=== PATIENT | female | born 1970 | race Caucasian/White ===

== ENCOUNTER → 2019-02-02 12:21 | Outpatient (CLI) | payer BC, SELFPAY ==
--- NOTE | 2019-02-02 12:25 | DI.RAD.S_ITS ---
PROCEDURE: XR ABDOMEN 1V INDICATIONS: epigastric pain, V/D TECHNIQUE: One view of the abdomen acquired. COMPARISON: None. FINDINGS: Surgical changes and devices: None. Bowel: Bowel gas pattern is normal. Soft tissues: No suspicious abdominal calcifications. Visualized solid organ contours appear normal in size. Bones: No suspicious bony lesions. IMPRESSION: Source of epigastric pain is not identified. Dictated by: Ted Del Real M.D. on 02/02/2019 at 13:32 Approved by: Ted Del Real M.D. on 02/02/2019 at 13:33
== END ==
PROVIDERS: Visit Provider Physician Assistant
DX: R10.13 Epigastric pain (principal); R11.10 Vomiting, unspecified; R19.7 Diarrhea, unspecified
CPT/HCPCS: 74018

== ENCOUNTER → 2019-05-22 17:09 | Outpatient (CLI) | payer BC, SELFPAY ==
[2019-05-22 19:15] LABS: HIV 1 & 2 Ab/Ag 4th Gen Combo NEGATIVE (NEGATIVE)
[2019-05-22 19:59] LABS: Hep C Virus Ab w/Reflex Quant NEGATIVE s/c (NEGATIVE)
[2019-05-25 13:38] LABS: HSV 1 IgM Screen Negative (Negative); HSV 2 IgM Screen Negative (Negative)
[2019-05-25 20:58] LABS: RPR Screen Nonreactive (Nonreactive)
== END ==
DX: A64 Unspecified sexually transmitted disease (principal)
CPT/HCPCS: 36415; 86592; 86695; 86696; 86803; 87389

== ENCOUNTER → 2019-06-16 09:11 | Outpatient (CLI) | payer BC, SELFPAY ==
[2019-06-16 09:51] LABS: Add Manual Diff / Slide Review NO; Basophils Absolute Auto 100 /uL (0-100); Basophils Percent Auto 1.5 % (0-2); Eosinophils Absolute Auto 800 /uL (0-450); Eosinophils Percent Auto 14.2 % (2-4); Hemoglobin 12.8 g/dL (12.0-16.0); Lymphocytes Absolute Auto 1800 /uL (1100-4500); Lymphocytes Percent Auto 31.2 % (25-40); Mean Corpuscular HGB Conc 33.6 % (30-36); Mean Corpuscular Hemoglobin 29.9 PG (26-34); Mean Corpuscular Volume 89.1 fL (80-100); Monocytes Absolute Auto 500 /uL (0-900); Neutrophils Absolute Auto 2500 /uL (1500-7000); Neutrophils Percent Auto 44.1 % (50-75); Platelet Count 326 X10^3/uL (150-400); Red Blood Cell Count 4.27 X10^6/uL (4.0-5.2); White Blood Cell Count 5.7 X10^3/uL (4.5-11.0)
[2019-06-16 09:56] LABS: Alanine Aminotransferase 15 IU/L (<35); Albumin 4.1 g/dL (3.5-5.0); Albumin Globulin Ratio 1.3 (1.0-2.8); Alkaline Phosphatase 48 U/L (38-126); Aspartate Aminotransferase 20 IU/L (14-36); BUN Creatinine Ratio 12.9 (6-22); Bilirubin Total 0.7 mg/dL (0.2-1.3); Blood Urea Nitrogen 9 mg/dL (7-17); Calcium 9.5 mg/dL (8.4-10.2); Carbon Dioxide 26 mmol/L (22-32); Chloride 102 mmol/L (98-107); Cholesterol 234 mg/dL (140-199); Estimated Glomerular Filt Rate > 60.0 mL/min (>60); Globulin 3.1 g/dL (1.7-4.1); Glucose 92 mg/dL (70-100); HDL Cholesterol 49 mg/dL (40-60); HEMOLYSIS < 15 (0-50); LDL Cholesterol Calculated 171 mg/dL (<100); Potassium 4.2 mmol/L (3.4-5.1); Sodium 138 mmol/L (137-145); Total Protein 7.2 g/dL (6.3-8.2); Triglycerides 69 mg/dL (35-150)
[2019-06-16 10:13] LABS: Vitamin D 25 Hydroxy (D3) 35.8 ng/mL (30.0-100.0)
[2019-06-16 10:17] LABS: Free T3, Triiodothyronine Free 3.01 pg/mL (2.77-5.27)
[2019-06-16 10:30] LABS: Thyroid Stimulating Hormone 1.43 uIU/mL (0.47-4.68)
[2019-06-16 10:46] LABS: Vitamin B12 458 pg/mL (239-931)
== END ==
PROVIDERS: PCP Family Medicine; Referring Provider Family Medicine; Visit Provider Family Medicine
DX: Z13.220 Encounter for screening for lipoid disorders (principal); Z13.29 Encounter for screening for other suspected endocrine disorder; E55.9 Vitamin D deficiency, unspecified; R53.83 Other fatigue
CPT/HCPCS: 36415; 80053; 80061; 82306; 82607; 84439; 84443; 84481; 85025

== ENCOUNTER → 2019-09-27 15:01 | Outpatient (CLI) | payer BC, SELFPAY ==
--- NOTE | 2019-09-27 | DI.US.S_ITS ---
PROCEDURE: US ABDOMEN COMPLETE INDICATIONS: EPIGASTRIC PAIN TECHNIQUE: Real-time scanning was performed of the abdominal and retroperitoneal organs, with image documentation. COMPARISON: [facility], CR, XR ABDOMEN 1V, 02/02/2019, 12:24. FINDINGS: Liver: Liver is normal in size and homogeneous in echotexture. Gallbladder: No findings of gallstones or sludge are seen. The gallbladder wall is not thickened, measuring 3 mm or less. No specific pericholecystic fluid is seen. The sonographic Calvo sign is negative. Biliary ducts: Intrahepatic bile ducts are non-dilated. Extrahepatic bile duct caliber measures 4 mm. Normal is 6-7 mm or less in diameter, or 10 mm or less post-cholecystectomy. Pancreas: Visualized portions of the pancreas are sonographically normal. Spleen: Spleen is normal in size and homogeneous in echotexture. Kidneys: Kidneys are normal in size and echotexture. Right kidney measures 9.4 cm long; left kidney measures 12.1 cm long. No hydronephrosis or nephrolithiasis. No solid masses. Aorta: Visualized aorta is normal in caliber at less than 3 cm. Iliacs: Proximal common iliac arteries are normal in caliber at less than 2.5 cm. IVC: Intrahepatic inferior vena cava is patent. Miscellaneous: No free abdominal fluid. IMPRESSION: The gallbladder demonstrates a normal sonographic appearance. No biliary dilatation is seen. Dictated by: Tj Valdez M.D. on 09/27/2019 at 14:59 Approved by: Tj Valdez M.D. on 09/27/2019 at 15:00
== END ==
PROVIDERS: PCP Family Medicine; Referring Provider Internal Medicine; Visit Provider Internal Medicine
DX: R10.13 Epigastric pain (principal)
CPT/HCPCS: 76700

== ENCOUNTER → 2020-02-28 09:39 | Outpatient (CLI) | payer BC, SELFPAY ==
[2020-02-28 11:26] LABS: Vitamin D 25 Hydroxy (D3) 30.4 ng/mL (30.0-100.0)
[2020-02-28 11:28] LABS: Free T3, Triiodothyronine Free 3.26 pg/mL (2.77-5.27); Free T4, Direct Thyroxine 0.99 ng/dL (0.78-2.19)
[2020-02-28 11:41] LABS: Thyroid Stimulating Hormone 1.46 uIU/mL (0.47-4.68)
[2020-03-01 20:35] LABS: HSV I/II IgM 0.96 Ratio (0.00-0.90)
== END ==
PROVIDERS: PCP Family Medicine; Referring Provider Family Medicine; Visit Provider Family Medicine
DX: E78.5 Hyperlipidemia, unspecified (principal); R53.83 Other fatigue; Z20.2 Contact with and (suspected) exposure to infections with a predominantly sexual mode of transmission; E55.9 Vitamin D deficiency, unspecified
CPT/HCPCS: 36415; 82306; 84439; 84443; 84481; 86694; 86695

== ENCOUNTER → 2020-03-14 17:15 | Outpatient (CLI) | payer BC, SELFPAY | PROVIDERS: PCP Family Medicine; Referring Provider Family Medicine; Visit Provider Family Medicine | DX: Z20.89 Contact with and (suspected) exposure to other communicable diseases (principal) | CPT/HCPCS: 36415; 86696 ==

== ENCOUNTER 2020-03-17 11:09 | Outpatient (RCR) | payer BC, SELFPAY ==
--- NOTE | 2020-03-18 10:24 | ST.OPIE ---
Visit Care Team Role Provider Type Everardo Ingram DO Primary Care Provider Physician Specialty: Family Practice Address: [address] [place] [address], [id number] Email: Omi Marin MD Attending Provider Physician Referring Provider Specialty: Ear, Nose, Throat Address: [address] [place] [address], [id number] Email: [email or web address] Speech-Language Pathology Initial Evaluation REGISTERED DENTAL HYGIENIST Clinical Swallow Evaluation Start: 03/18/20 09:29 Freq: Status: Active Protocol: Document 03/17/20 11:30 LNK (Rec: 03/18/20 10:24 LNK [id number]) Clinical Swallow Evaluation Session Time Visit Start Time 11:30 Visit Stop Time 12:30 Total Visit Minutes 60 Visit Information Plan of Care Dates 03/17/20-06/17/[address] Marin, ENT Reason for Referral dysphagia Setting Assessment Location Outpatient Care Visit Type Note Type Initial evaluation Next Note Type Next Note Type Treatment Note Patient Information Identification Type Name,Picture History April is a 49 year old female who was referred for an evaluation of her swallowing. According to April, she has experienced some choking on liquids (e.g.,hot tea) and has difficulty with swallowing pills. She reports a sensation of globus when she swallows as well. Swallowing foods after the pills typically allows the pills to pass. April reported a medical history of sinusitis, PND, a possible hiatal hernia (per her chiropractor) and thyroid problems (Sjogren's disease). April noted that she has frequent sinusitis with non- stop PND. She clears her throat often as well. Her voice can become hoarse at times, especially in the morning. Subjective Observations April arrived on time. During her appointment she was noted to frequently clear her throat. Reported by Patient Other Symptoms Choking,Difficulty swallowing pills Current Diet Regular,Thin liquids Baseline Feeding Method Independent in self-feeding Objective Assessment Mental Status Alert,Responsive,Cooperative Oral Integrity WFL Dentition Within normal limits Lip Function Within normal limits Observation of Lips at Rest Symmetrical Pucker Within normal limits Lip Retraction Within normal limits Alternating Pucker/Lip Retraction Within normal limits Tongue Function Within normal limits Observations of Tongue at Rest Within normal limits Tongue Protrusion Within normal limits Tongue Retraction Within normal limits Tongue Lateralization Within normal limits Observations of Jaw at Rest Within normal limits Hard/Soft Palate Function Within normal limits Nasality Within normal limits Respiratory Sufficiency Within normal limits Food and Liquid Trials Position During Assessment Upright (90 degrees) Liquids Trialed Thin Solids Trialed Regular Administration Type Cup single sip,Self-feeding Oral Impairment Within normal limits Pharyngeal Phase Comments Hyolaryngeal elevation was WNL . Swallow was prompt. No cough /choke observed. No wet voicing following swallows. April did , however, have difficulty swallowing a piece of candy shaped like a pill. She reported that she felt it stuck in her throat (pointing to thyroid cartilage). Several sips of water, some pudding and cracker, did not ease the sensation. It is possible that the pill was lodged within the valeculla. Fatigue/Endurance Endurance WNL Strategies Attempted Effortful swallow,Supraglottic swallow Findings Swallowing Function Within functional limits Swallowing Function Comments April presented with difficulty with swallowing pills. Severity of Swallow Impairment Within functional limits Comment April reported that her chiropractor told her she had a hiatal hernia. It is possible that her sensation of globus could be the result of a referred sensation of globus. Alternatively, April's symptoms may indeed be related to sinusitis, including PND, throat clearing, globus sensation, vocal hoarseness, tissue swelling in the oropharyngeal cavity in response to infection which could impact the inversion of the epiglottis. Given the difficulty April presented while trying to swallow the pill, a swallow therapy program was recommended. Tongue based exercises targeting hyolaryngeal elevation and epiglottal inversion were described and demonstrated to April. Instructions to do these exercises 3-4x/day with a return visit in 4 weeks was also discussed. April was also encouraged to further discuss her sinusitis symptoms with Dr. Marin and her primary physician. Impact on Safety and Functioning No limitations Recommendations Instrumental Assessment No Swallowing Treatment Yes Recommended Solids Regular Recommended Liquids Thin Other Recommendations Pills in a carrier Medication Recommendations Whole in Carrier Referrals Recommended Referrals Gastroenterology, Otolaryngology/ENT Education Patient/Caregiver Education Patient expressed understanding of evaluation, Patient expressed agreement with goals & treatment plans
--- NOTE | 2020-03-18 10:26 | ST.OPPOC ---
Physical, Occupational & Speech Therapy At [facility] Visit Care Team Role Provider Type Everardo Ingram DO Primary Care Provider Physician Address: [address] [place] [address], [id number] Omi Marin MD Attending Provider Physician Referring Provider Address: [address] [place] [address], [address] Speech Pathology Plan of Care Plan of Care Dates 03/17/20-06/17/19 Electronically Signed by: SHARON Morgan 03/18/20 1026 Please Sign and Return: I have reviewed this Plan of Care and certify that the skilled therapy services above are required to meet the patient?s needs. Physician Signature Date Printed Name and Credentials Clinical Instructor Signature Printed Name and Credentials
--- NOTE | 2020-03-31 08:57 | ST.OPTN ---
Visit Care Team Role Provider Type Everardo Ingram DO Primary Care Provider Physician Address: [address] [place] [address], [address] Omi Marin MD Attending Provider Physician Referring Provider Address: [address] [place] [address], [id number] MUSIC PUBLICIST Treatment Note MUSIC PUBLICIST Treatment Note Start: 03/18/20 09:29 Freq: Status: Active Protocol: Document 03/31/20 08:55 LNK (Rec: 03/31/20 08:57 LNK [id number]) Speech Pathology Treatment Note Visit Type Note Type Administrative Note Subjective Observations/Patient Presentation Recived e-mail from pt today: From: April Skelton [mailto: [email or web address]] Sent: Monday, March 30, 2020 9:21 PM To: Alyson Angel Subject: [EXTERNAL] Pills STOP. THINK. READ. This message originated outside of [facility]. Thank you for your help and for your availability by email . I do have a question. First, I'll confess I haven't been doing the exercises - got a bit overwhelmed with health stuff and decided to prioritize the thyroid related stuff first. It turns out, however, that the two are related. The treatment for David's involved swallowing a pill on an empty stomach - no food 2 hours before or an hour after, twice a day. Started this morning. I'm not 100% sure of what Im feeling, but I think it got stuck and stayed in my throat until it waited out the hour and I ate. Tonight I used my training associate to make crushed ice and tried that as a chaser. It does seem a bit better, but my throat is still irritated. I've still received no treatment at all for what I think is a sinus infection. They did do a CT last week. I will stay on them about that. And I'll start donig the exercises you gave me. In the meantime, I'm wondering if you have suggestions about things that might help me get the pills down. Position? Engaging particular muscles in a particular way? Heat or cold on my throat? I'm game to try anything. Playing with hormones is dicey enough when I'm actually getting the meds as prescribed! Not entirely sure what happens to a capsule of T3 as it sits in a moist throat for an hour or more. Thanks for any help you can offer. In Community, April Skelton [employer] [phone] [email or web address] Response to pt: Good morning ? Well, my first thought is that if the pill sat there in your throat, melting could cause irritation, depending on the medication and/or what the coating is. Crushing, or blending the medication in something would be my next suggestion. If your throat is irritated, the ice should help. It sounds like it is difficult if you cannot eat anything. You might try pushing your tongue up on the roof of your mouth before you swallow and then swallow hard. The position will elevate your larynx and may assist the ice mixture to move through the pharynx/throat easier. I hope the CT shows something that can answer your questions . Alyson
== END 2020-06-04 08:46 ==
LOC: SP 11:09
PROVIDERS: PCP Family Medicine; Referring Provider Otolaryngology; Visit Provider Otolaryngology
DX: R13.12 Dysphagia, oropharyngeal phase (principal)
CPT/HCPCS: 92610

== ENCOUNTER → 2020-03-19 07:30 | Outpatient (CLI) | payer BC, SELFPAY ==
[2020-03-20 06:09] LABS: Thyroid Peroxidase Antibodies <9 IU/mL (0-34)
[2020-03-21 03:36] LABS: Thyroxine Binding Globulin 20 ug/mL (13-39)
[2020-04-02 01:43] LABS: Triiodothyronine T3 Reverse 15.1 ng/dL (9.2-24.1)
== END ==
PROVIDERS: PCP Family Medicine; Referring Provider Family Medicine; Visit Provider Family Medicine
DX: E83.01 Wilson's disease (principal)
CPT/HCPCS: 36415; 84442; 84482; 86376

== ENCOUNTER → 2020-03-25 10:08 | Outpatient (CLI) | payer BC, SELFPAY ==
--- NOTE | 2020-03-25 10:12 | DI.CT.S_ITS ---
PROCEDURE: CT SINUS SCREEN WO CON INDICATIONS: Chronic pansinusitis TECHNIQUE: Noncontrast 3.0 mm axial images acquired from the frontal sinuses to the mid-sella, with coronal and sagittal reformats. For radiation dose reduction, the following was used: automated exposure control, adjustment of mA and/or kV according to patient size. COMPARISON: None. FINDINGS: Image quality: There is artifact associated with the metallic hardware. Artifact from the metallic hardware is reduced by metal reconstruction algorithm. Maxillary Sinuses: No bony remodeling or destruction. Moderate mucosal thickening is seen within the inferior right maxillary sinus. There is mild mucosal thickening within the inferior left maxillary sinus. Ethmoid Air Cells: No bony remodeling or destruction. Sinuses are clear. Sphenoid Sinuses: No bony remodeling or destruction. Sinuses are clear. Frontal Sinuses: No bony remodeling or destruction. Tpiz-oz-cttgslgz mucosal thickening is seen within the inferior left frontal sinus. The frontal sinuses are poorly developed. Ostiomeatal Complexes: Ostiomeatal complexes are patent, yet they are constitutionally narrowed. No thamina Jose cells. Miscellaneous: Visualized intra-orbital contents are normal. There is a partial left saira bullosa. Mild to moderate rightward nasal septal deviation can be seen. IMPRESSION: Paranasal sinus disease is seen, which is most prominent within the right maxillary sinus. Narrowed ostiomeatal complexes. Mild to moderate rightward nasal septal deviation. Dictated by: Tj Valdez M.D. on 03/25/2020 at 9:49 Approved by: Tj Valdez M.D. on 03/25/2020 at 9:51
== END ==
PROVIDERS: PCP Family Medicine; Referring Provider Otolaryngology; Visit Provider Otolaryngology
DX: J32.4 Chronic pansinusitis (principal); J34.2 Deviated nasal septum
CPT/HCPCS: 70486

== ENCOUNTER → 2020-07-23 11:56 | Outpatient (CLI) | payer BC, SELFPAY ==
[2020-07-23 13:07] LABS: Hepatitis B Surface Antigen NEGATIVE s/c (NEGATIVE)
[2020-07-23 13:22] LABS: HIV 1 & 2 Ab/Ag 4th Gen Combo NEGATIVE (NEGATIVE); Hep C Virus Ab w/Reflex Quant NEGATIVE s/c (NEGATIVE)
[2020-07-23 13:48] LABS: Urine N gonorrhoeae NOT DETECTED
[2020-07-23 13:49] LABS: Urine Chlamydia NOT DETECTED
[2020-07-24 06:44] LABS: HSV 2 IGG AB < 0.91 index (0.00-0.90)
[2020-07-24 07:09] LABS: RPR Screen Non Reactive (Non Reactive)
== END ==
PROVIDERS: PCP Family Medicine; Referring Provider Nurse Practitioner Family; Visit Provider Nurse Practitioner Family
DX: Z20.2 Contact with and (suspected) exposure to infections with a predominantly sexual mode of transmission (principal)
CPT/HCPCS: 36415; 86592; 86695; 86696; 86803; 87340; 87389; 87491; 87591

== ENCOUNTER → 2021-01-12 12:39 | Outpatient (CLI) | payer BC, SELFPAY ==
--- NOTE | 2021-01-12 12:40 | DI.RAD.S_ITS ---
PROCEDURE: XR RIBS LT MIN 3V W CXR1V INDICATIONS: left rib pain TECHNIQUE: 2 views of the left ribs were acquired, along with a single view chest. COMPARISON: None. FINDINGS: Surgical changes and devices: None. Bones and chest wall: No fractures or dislocations. No suspicious bony lesions. Overlying soft tissues appear unremarkable. Lungs and pleura: No pleural effusions or pneumothorax. Lungs appear clear. Mediastinum: Mediastinal contours appear normal. Heart size is normal. IMPRESSION: No obvious displaced left rib fracture. No acute cardiopulmonary pathology. Dictated by: Kenji Saez M.D. on 01/12/2021 at 15:06 Approved by: Kenji Saez M.D. on 01/12/2021 at 15:20
== END ==
PROVIDERS: PCP Family Medicine; Referring Provider Family Medicine; Visit Provider Family Medicine
DX: R07.81 Pleurodynia (principal)
CPT/HCPCS: 71101

== ENCOUNTER → 2021-05-22 12:36 | Outpatient (CLI) | payer BC, SELFPAY ==
--- NOTE | 2021-05-22 12:39 | DI.MRI.S_ITS ---
PROCEDURE: MR LUMBAR SPINE WO CON INDICATIONS: pain TECHNIQUE: Noncontrast sagittal T1 spin echo and T2 fast echo, sagittal STIR, axial T1 and T2 fast spin echo through the lumbar spine. In cases with scoliosis, additional coronal T2 fast spin echo may be performed. COMPARISON: None. FINDINGS: Image quality: Excellent. Alignment and Curvature: There is normal bony alignment. Bones: Multiple small Schmorl's nodes. Marrow is of normal overall signal. No acute vertebral body compression fractures. Spinal Cord: Conus medullaris terminates at the L1 disc level. Visualized cord demonstrates normal signal and size. Paraspinous Soft Tissues: No paravertebral masses. T12-L1: Normal appearance. L1-L2: Normal appearance. L2-L3: Slight loss of disc signal. No central stenosis. No neural foraminal narrowing. No neural compression L3-L4: Slight loss of disc signal. No central stenosis. No neural foraminal narrowing. No neural compression. L4-L5: Slight loss of disc signal. No central stenosis. No neural foraminal narrowing. No neural compression. L5-S1: Slight loss of disc signal. Mild, diffuse disc bulge. No central stenosis. No neural foraminal narrowing. No neural compression. IMPRESSION: 1. No central stenosis. 2. No neural foraminal narrowing. 3. No neural compression. 4. Multilevel degenerative disc disease. Dictated by: Valeria Hughes MD, PhD on 05/22/2021 at 16:51 Approved by: Valeria Hughes MD, PhD on 05/22/2021 at 16:55
== END ==
PROVIDERS: PCP Family Medicine; Referring Provider Family Medicine; Visit Provider Family Medicine
DX: M51.17 Intervertebral disc disorders with radiculopathy, lumbosacral region (principal)
CPT/HCPCS: 72148

== ENCOUNTER → 2021-11-09 07:06 | Outpatient (CLI) | payer BC, SELFPAY ==
[2021-11-09 08:15] LABS: Hematocrit 36.4 % (36-46); Hemoglobin 12.3 g/dL (12.0-16.0); Mean Corpuscular HGB Conc 33.9 % (30-36); Mean Corpuscular Hemoglobin 30.1 PG (26-34); Mean Corpuscular Volume 88.8 fL (80-100); Platelet Count 315 X10^3/uL (150-400); Red Cell Distribution Width 13.7 % (11.6-14.8); White Blood Cell Count 4.9 X10^3/uL (4.5-11.0)
[2021-11-09 08:19] LABS: Add Manual Diff / Slide Review YES
[2021-11-09 08:41] LABS: Alanine Aminotransferase 29 IU/L (<35); Albumin 3.8 g/dL (3.5-5.0); Albumin Globulin Ratio 1.2 (1.0-2.8); Alkaline Phosphatase 57 U/L (38-126); Aspartate Aminotransferase 26 IU/L (14-36); BUN Creatinine Ratio 18.2 (6-22); Bilirubin Total 0.4 mg/dL (0.2-1.3); Blood Urea Nitrogen 14 mg/dL (7-17); Calcium 8.9 mg/dL (8.4-10.2); Carbon Dioxide 28 mmol/L (22-32); Chloride 105 mmol/L (98-107); Estimated Glomerular Filt Rate > 60 mL/min (>60); Globulin 3.2 g/dL (1.7-4.1); Glucose 95 mg/dL (70-100); HEMOLYSIS < 15 (0-50); Potassium 4.6 mmol/L (3.4-5.1); Sodium 137 mmol/L (137-145)
[2021-11-09 08:49] LABS: Neutrophils Absolute Manual 1813 /uL (3000-5900); RBC Morphology Norm; Total Cells Counted 100
[2021-11-09 08:50] LABS: Erythrocyte Sedimentation Rate 20 MM/HR (0-20)
[2021-11-09 08:53] LABS: Free T3, Triiodothyronine Free 3.29 pg/mL (2.77-5.27); Free T4, Direct Thyroxine 0.96 ng/dL (0.78-2.19)
[2021-11-09 09:07] LABS: Thyroid Stimulating Hormone 1.97 uIU/mL (0.47-4.68)
[2021-11-09 09:12] LABS: Ferritin 40 ng/mL (6-137)
== END ==
PROVIDERS: PCP Family Medicine; Referring Provider Naturopath; Visit Provider Naturopath
DX: F41.9 Anxiety disorder, unspecified (principal); I49.8 Other specified cardiac arrhythmias
CPT/HCPCS: 36415; 80053; 82728; 84439; 84443; 84481; 85007; 85025; 85651; 86850

== ENCOUNTER → 2021-12-09 09:13 | Outpatient (CLI) | payer BC, SELFPAY ==
[2021-12-09 09:52] LABS: Add Manual Diff / Slide Review NO; Basophils Absolute Auto 100 /uL (0-100); Basophils Percent Auto 0.8 % (0-2); Eosinophils Absolute Auto 500 /uL (0-450); Eosinophils Percent Auto 7.3 % (2-4); Hematocrit 37.1 % (36-46); Hemoglobin 12.5 g/dL (12.0-16.0); Lymphocytes Absolute Auto 1700 /uL (1100-4500); Lymphocytes Percent Auto 24.1 % (25-40); Mean Corpuscular HGB Conc 33.6 % (30-36); Mean Corpuscular Hemoglobin 29.8 PG (26-34); Mean Corpuscular Volume 88.7 fL (80-100); Monocytes Absolute Auto 600 /uL (0-900); Monocytes Percent Auto 8.6 % (3-14); Neutrophils Absolute Auto 4200 /uL (1500-7000); Neutrophils Percent Auto 59.2 % (50-75); Platelet Count 304 X10^3/uL (150-400); Red Blood Cell Count 4.18 X10^6/uL (4.0-5.2); Red Cell Distribution Width 13.3 % (11.6-14.8); White Blood Cell Count 7.1 X10^3/uL (4.5-11.0)
[2021-12-09 10:08] LABS: C-Reactive Protein Quant < 0.5 mg/dL (<1.0)
[2021-12-09 10:13] LABS: Erythrocyte Sedimentation Rate 28 MM/HR (0-20)
== END ==
PROVIDERS: PCP Family Medicine; Referring Provider Naturopath; Visit Provider Naturopath
DX: R79.9 Abnormal finding of blood chemistry, unspecified (principal); N95.9 Unspecified menopausal and perimenopausal disorder
CPT/HCPCS: 36415; 83001; 85025; 85651; 86140

== ENCOUNTER → 2022-02-08 11:34 | Outpatient (CLI) | payer BC, SELFPAY | PROVIDERS: PCP Family Medicine; Referring Provider Naturopath; Visit Provider Naturopath | DX: R53.83 Other fatigue (principal); Z72.9 Problem related to lifestyle, unspecified | CPT/HCPCS: 87177 ==

== ENCOUNTER → 2022-02-26 12:23 | Outpatient (CLI) | payer BC, SELFPAY ==
[2022-02-26 13:53] LABS: Add Manual Diff / Slide Review NO; Basophils Absolute Auto 100 /uL (0-100); Basophils Percent Auto 0.9 % (0-2); Eosinophils Absolute Auto 600 /uL (0-450); Eosinophils Percent Auto 5.9 % (2-4); Hematocrit 38.6 % (36-46); Lymphocytes Absolute Auto 2300 /uL (1100-4500); Lymphocytes Percent Auto 23.7 % (25-40); Mean Corpuscular HGB Conc 33.7 % (30-36); Mean Corpuscular Hemoglobin 29.9 PG (26-34); Mean Corpuscular Volume 88.9 fL (80-100); Monocytes Absolute Auto 600 /uL (0-900); Monocytes Percent Auto 6.7 % (3-14); Neutrophils Absolute Auto 6100 /uL (1500-7000); Neutrophils Percent Auto 62.8 % (50-75); Platelet Count 363 X10^3/uL (150-400); Red Blood Cell Count 4.34 X10^6/uL (4.0-5.2); Red Cell Distribution Width 13.5 % (11.6-14.8); White Blood Cell Count 9.7 X10^3/uL (4.5-11.0)
[2022-02-26 14:11] LABS: Erythrocyte Sedimentation Rate 20 MM/HR (0-20)
== END ==
PROVIDERS: PCP Family Medicine; Referring Provider Naturopath; Visit Provider Naturopath
DX: R79.9 Abnormal finding of blood chemistry, unspecified (principal)
CPT/HCPCS: 36415; 85025; 85651

== ENCOUNTER → 2024-02-14 16:53 | Outpatient (CLI) | payer BC, SELFPAY ==
--- NOTE | 2024-02-14 16:55 | DI.MG.S_ITS ---
BILATERAL DIGITAL SCREENING MAMMOGRAM 3D/2D WITH CAD: 02/14/2024 CLINICAL: Baseline exam. Routine screening. No prior exams were available for comparison. The breasts are almost entirely fatty (category a/<25% glandular tissue). Current study was also evaluated with a Computer Aided Detection (CAD) system. There is a benign global asymmetry in the right breast. No significant masses, calcifications, or other findings are seen in either breast. IMPRESSION: BENIGN There is no mammographic evidence of malignancy. A 1 year screening mammogram is recommended. Based on the Tyrer Cuzick model (a risk assessment model) the patient's lifetime risk is 6.4% and her 10 year risk is 1.5%. According to the ACR, ACS, and NCCN guidelines, an annual breast MRI exam along with mammogram is recommended if the patient's lifetime risk is 20% or greater. This exam was interpreted at Station ID: [id number]. NOTE: For mammograms, a report in lay terms will be sent to the patient. Approximately 15% of breast malignancies will not be visualized mammographically. In the management of a palpable breast mass, a negative mammogram must not discourage biopsy of a clinically suspicious lesion. Electronically Signed By: Julieta pinzon/mahsa:02/15/2024 12:05:56 letter sent: Normal Exam ACR BI-RADS Category 2: Benign
== END ==
LOC: MAMMO 16:54
PROVIDERS: PCP Family Medicine; Referring Provider Family Medicine; Visit Provider Family Medicine
DX: Z12.31 Encounter for screening mammogram for malignant neoplasm of breast (principal); R92.313 Mammographic fatty tissue density, bilateral breasts
CPT/HCPCS: 77063; 77067

== ENCOUNTER → 2024-06-15 08:07 | Outpatient (CLI) | payer BC, SELFPAY ==
[2024-06-15 09:12] LABS: Erythrocyte Sedimentation Rate 34 MM/HR (0-20)
[2024-06-15 09:13] LABS: C-Reactive Protein Quant 1.2 mg/dL (<1.0); Cholesterol 317 mg/dL (140-199); HDL Cholesterol 49 mg/dL (40-60); LDL Cholesterol Calculated 243 mg/dL (<100); Triglycerides 125 mg/dL (35-150)
== END ==
LOC: LAB 08:08
PROVIDERS: PCP Family Medicine; Referring Provider Family Medicine; Visit Provider Family Medicine
DX: E78.5 Hyperlipidemia, unspecified (principal)
CPT/HCPCS: 36415; 80061; 85651; 86140

== ENCOUNTER → 2024-07-18 08:48 | Outpatient (CLI) | payer BC, SELFPAY ==
[2024-07-18 11:04] LABS: Erythrocyte Sedimentation Rate 33 MM/HR (0-20)
[2024-07-18 13:12] LABS: C-Reactive Protein Quant < 0.5 mg/dL (<1.0); Cholesterol 281 mg/dL (140-199); HDL Cholesterol 45 mg/dL (40-60); LDL Cholesterol Calculated 212 mg/dL (<100); Triglycerides 121 mg/dL (35-150)
== END ==
PROVIDERS: PCP Family Medicine; Referring Provider Family Medicine; Visit Provider Family Medicine
DX: E78.5 Hyperlipidemia, unspecified (principal)
CPT/HCPCS: 36415; 80061; 83090; 85651; 86140

== ENCOUNTER → 2025-05-02 10:48 | Outpatient (CLI) | payer BC, SELFPAY ==
--- NOTE | 2025-05-02 10:50 | DI.MG.S_ITS ---
MM screening mammo BI: 05/02/2025. BI-RADS: 1 CLINICAL: 54-year old female for bilateral screening mammogram. Tyrer-Cuzick lifetime risk of 15.6%. No personal or first-degree family history of breast cancer. PRIOR EXAMS 02/14/2024. MAMMOGRAPHY TECHNIQUE: 2D and 3D (tomosynthesis) digital mammographic views obtained, with additional images as needed for full coverage. Current study was also evaluated with a Computer Aided Detection (CAD) system. DENSITY Right: C. The breast is heterogeneously dense, which may obscure small masses. Left: B. There are scattered areas of fibroglandular density. MAMMOGRAPHY FINDINGS Bilateral: No suspicious mass, asymmetry, microcalcification, or other abnormality seen. IMPRESSION: * No evidence of malignancy. RECOMMENDATIONS Bilateral * Annual screening mammography. OVERALL ASSESSMENT CATEGORY BI-RADS-1: Negative. The [employer] recommends annual screening mammography beginning at age 40 for women with average risk of breast cancer. ELECTRONICALLY SIGNED: Brandon Weinstein M.D. on 05/02/2025 at 04:40:03 PM PT Interpreting Station ID: [id number]
== END ==
PROVIDERS: PCP Family Medicine; Referring Provider Family Medicine; Visit Provider Family Medicine
DX: Z12.31 Encounter for screening mammogram for malignant neoplasm of breast (principal); R92.331 Mammographic heterogeneous density, right breast; R92.322 Mammographic fibroglandular density, left breast
CPT/HCPCS: 77063; 77067